=== PATIENT | female | born 1960 | race Caucasian/White ===

== ENCOUNTER 2022-09-11 15:41 | Outpatient (CLI) | payer MEDICAID, SELFPAY ==
--- NOTE | 2022-09-11 | DI.RAD_ITS ---
Exam(s) XR ANKLE RT COMPLETE XR FOOT RT COMPLETE EXAM: XR ANKLE RT COMPLETE CLINICAL HISTORY: RT ANKLE PAIN M25.571. TECHNIQUE: 2D digital imaging was performed. Three views. COMPARISON: CR XR FOOT RT COMPLETE from 09/11/2022 FINDINGS: BONES: Nondisplaced fracture at the base of the 5th metatarsal. Fracture extends to the articular gerardo rface but there is no significant separation. Nondisplaced fracture at the tip of the lateral malleo barbara. No bony destructive lesion is seen. JOINTS: Mild widening of the ankle mortise laterally. SOFT TISSUE: Swelling greatest around lateral malleolus. IMPRESSION: Nondisplaced fracture base of 5th metatarsal. Nondisplaced fracture tip of the lateral malleolus. DATA REPOSITORY: RADIATION DOSE DELIVERED:
== END 2022-09-11 16:01 ==
PROVIDERS: PCP Nurse Practitioner Family; Visit Provider Nurse Practitioner Family
DX: S92.354A Nondisplaced fracture of fifth metatarsal bone, right foot, initial encounter for closed fracture (principal); M25.571 Pain in right ankle and joints of right foot; X58.XXXA Exposure to other specified factors, initial encounter; S82.64XA Nondisplaced fracture of lateral malleolus of right fibula, initial encounter for closed fracture
CPT/HCPCS: 73610; 73630

== ENCOUNTER 2022-09-27 11:41 | Outpatient (CLI) | payer MEDICAID, SELFPAY ==
--- NOTE | 2022-09-27 10:57 | DI.RAD_ITS ---
Exam(s) XR ANKLE RT COMPLETE EXAM: XR ANKLE RT COMPLETE CLINICAL HISTORY: R ANKLE FX. TECHNIQUE: 2D digital imaging was performed. COMPARISON: Prior x-rays 09/11/2022 FINDINGS: Amount of soft tissue swelling laterally has decreased. The avulsion fracture at tip of the lateral malleolus appears unchanged. Also again noted is a fract ure of the base of the 5th metatarsal. No new additional fractures evident. IMPRESSION: Previously described lateral malleolus tip and base 5th metatarsal fractures appear unchanged. DATA REPOSITORY: RADIATION DOSE DELIVERED:
--- NOTE | 2022-09-27 10:58 | DI.RAD_ITS ---
Exam(s) XR FOOT RT COMPLETE EXAM: XR FOOT RT COMPLETE CLINICAL HISTORY: 5TH METATARSAL FX. TECHNIQUE: 2D digital imaging was performed. COMPARISON: CR XR FOOT RT COMPLETE from 09/11/2022 FINDINGS: 3 views Again noted is a fracture of the base of the 5th metatarsal, appearing unchanged. No further widenin g of the fracture site and no additional fractures evident nor radiopaque foreign body. There is no diastasis of the Lisfranc joint No additional fractures evident. IMPRESSION: Unchanged appearance of the fracture site at the base of the 5th metatarsal. DATA REPOSITORY: RADIATION DOSE DELIVERED:
== END 2022-09-27 11:42 | disposition home or self-care (01) ==
LOC: DIORS 11:42
PROVIDERS: PCP Nurse Practitioner Family; Referring Provider Nurse Practitioner Family; Visit Provider Student in an Organized Health Care Education/Training Program
DX: S92.351D Displaced fracture of fifth metatarsal bone, right foot, subsequent encounter for fracture with routine healing (principal); S82.61XD Displaced fracture of lateral malleolus of right fibula, subsequent encounter for closed fracture with routine healing; X58.XXXD Exposure to other specified factors, subsequent encounter
CPT/HCPCS: 73610; 73630

== ENCOUNTER 2023-08-06 13:11 | Outpatient (REF) | payer MEDICAID, SELFPAY ==
--- NOTE | 2023-08-06 11:35 | PAPFT_PTH ---
PATIENT: Christie Salomon LOC: [facility]#:[id number] AGE/SX: 62/F ROOM: RE08/06/[address]: Natalie Frost : 1960 BED: DIS: 08/06/2023 SPEC #: [id number] RECD: 08/06/23 18:08 STATUS: MICHAEL GRIMM #: [id number] HENRY: 08/06/23 11:[address]: Natalie Vigil DEPT: [facility] Cytology RECD BY: Lashay Alexis Tissues: 1 - CX/ENDOCX FOR PAP SMEARS Procedures: PAP THIN PREP/[facility] Screening HPV DNA PROBE Comments: [id number]
[2023-08-06 14:47] LABS: HCT 44.3 % (36.0-46.0); HGB 14.6 g/dL (11.2-15.7); MCH 30.5 pg (27.0-33.0); MCV 93 fL (80-95); MPV 11.5 fL (8.0-11.0); Platelet Count 248 10^3/uL (130-400); RBC 4.78 10^6/uL (3.93-5.22); RDW-SD 48.3 fL; WBC 7.27 10^3/uL (4.4-10.8)
[2023-08-06 14:56] LABS: ALT 20 U/L (14-59); AST 17 U/L (15-37); Albumin 4.1 g/dL (3.4-5.0); Alkaline Phosphatase 94 U/L (46-116); Anion Gap 12.7 mmol/L (3-11); BUN 15 mg/dL (7-18); Bilirubin, Total 0.6 mg/dL (0.2-1.0); CO2 24.3 mmol/L (21.0-32.0); CREATININE 0.7 mg/dL (0.55-1.02); Calcium 9.8 mg/dL (8.5-10.1); Calculated LDL 154 mg/dL (<100); Chloride 99 mmol/L (98-107); Cholesterol 248 mg/dL (<200); Estimated GFR 96.52 (mL/min/1.73m2); Glucose 110 mg/dL (74-106); HDL Cholesterol 81 mg/dL (40-60); Potassium 4.2 mmol/L (3.5-5.1); Sodium 136 mmol/L (136-145); Triglyceride 67 mg/dL (<150)
[2023-08-06 15:25] LABS: Hemoglobin A1C 5.5 % (<5.7)
[2023-08-06 23:03] LABS: Hepatitis C Ab w Rflx HCV PCR Negative (Negative)
== END 2023-08-06 13:12 | disposition home or self-care (01) ==
LOC: NCHCN 13:11
PROVIDERS: PCP Nurse Practitioner Family; Visit Provider Nurse Practitioner Family
DX: Z13.6 Encounter for screening for cardiovascular disorders (principal); Z13.1 Encounter for screening for diabetes mellitus; Z00.00 Encounter for general adult medical examination without abnormal findings; E66.9 Obesity, unspecified; Z12.4 Encounter for screening for malignant neoplasm of cervix
CPT/HCPCS: 80053; 80061; 85027; 86803; 88142; 83036; 87624

== ENCOUNTER 2025-01-14 17:40 | Outpatient (REF) | payer MEDICARE, MEDICAID, SELFPAY | END 2025-01-14 17:41 | disposition home or self-care (01) | LOC: NCHCN 17:40 | PROVIDERS: PCP Nurse Practitioner Family; Visit Provider Family Medicine | DX: Z76.89 Persons encountering health services in other specified circumstances (principal) | CPT/HCPCS: 87077; 87070; 87186; 87205 ==